=== PATIENT | male | born 1965 | race Caucasian/White ===

== ENCOUNTER 2019-04-19 11:53 | Emergency (ER) | payer OTHER ==
[~2019-04-19] VITALS: Ht 177.8 cm; Wt 101.8 kg
[2019-04-19] MEDS ORDERED: AMLO2.5T4 (12:14)
[2019-04-19] MEDS ORDERED: ceFAZolin INJECTION 2,000 MG ONE (12:23)
[2019-04-19] MEDS ORDERED: WATER (STERILE) FOR INJECTION 20 ML ONE (12:24)
[2019-04-19] MEDS ORDERED: TETANUS,DIPTH,PERTUSS P/F (BOOSTRIX) 0.5 ML VIAL IM ONE (12:30)
[2019-04-19] MEDS ORDERED: ceFAZolin 2 GM IV Premixed 50 ML IV ONE (12:30)
[2019-04-19] MEDS ORDERED: LIDOCAINE 1% INJ 20 ML 20 ML VIAL INJ ONE (12:30)
--- NOTE | 2019-04-19 12:31 | ED Upper Extremity ---
General Chief Complaint: Laceration Stated Complaint: WC RT THUMB LAC Source: patient Exam Limitations: no limitations History of Present Illness Date Seen by Provider: Apr 19, 2019 Time Seen by Provider: 12:00 Initial Comments The patient is a very pleasant 54-year-old male presents for evaluation of a significant right thumb injury. He states that he was at work and was removing a wire from a fence posts when it caught his thumb. The thumb nail and distal tip of the finger are completely hanging off the thumb with only a small piece of skin holding the tip on. He denies any other injuries. He is unsure of his tetanus this will be updated today. Explained to the patient that he may need to be transferred to a higher level facility for surgical care. Upon arrival the thumb tip does not appear to have good vascular supply. I did explain to the patient that regardless of whether the thumb is for. Here or elsewhere there is a high degree of likelihood that the tip will not survive. Onset: just prior to arrival Pain/Injury Location: right thumb Method of Injury: direct blow Allergies and Home Medications Allergies Coded Allergies: No Known Drug Allergies (Unverified , 04/19/19) Patient Home Medication List Home Medication List Reviewed: Yes Review of Systems Constitutional: no symptoms reported EENTM: no symptoms reported Respiratory: no symptoms reported Cardiovascular: no symptoms reported Gastrointestinal: no symptoms reported Genitourinary: no symptoms reported Musculoskeletal: other (right thumb laceration/injury) Skin: no symptoms reported Psychiatric/Neurological: No Symptoms Reported All Other Systems Reviewed Negative Unless Noted: Yes Past Wtpxnll-Fsowro-Ahogjk Hx Past Med/Social Hx: Reviewed Nursing Past Med/Soc Hx Patient Social History Alcohol Use: Denies Use Recreational Drug Use: No Smoking Status: Never a Smoker Type Used: Smokeless Tobacco 2nd Hand Smoke Exposure: No Recent Foreign Travel: No Recent Hopitalizations: No Physical Abuse: No Sexual Abuse: No Mistreated: No Fear: No Immunizations Up To Date Tetanus Booster (TDap): Unknown Seasonal Allergies Seasonal Allergies: No Past Medical History Surgeries: Yes (ORIF WITH REPAIRS FOR CIRCULATION TO R ANKLE, DISKECTOMY BACK, KNEE SCOPES) Orthopedic Respiratory: No Cardiac: Yes Hypertension Neurological: No Genitourinary: No Gastrointestinal: No Musculoskeletal: No Endocrine: No HEENT: No Cancer: No Psychosocial: No Integumentary: No Blood Disorders: No Physical Exam Vital Signs Vital Signs - First Documented 04/19/19 11:58 Temp 36.7 Pulse 83 Resp 16 B/P (MAP) 165/97 (119) Pulse Ox 96 O2 Delivery Room Air Capillary Refill : Less Than 3 Seconds Height, Weight, BMI Height: '" Weight: lbs. oz. kg; BMI Method: General Appearance: WD/WN, no apparent distress HEENT: PERRL/EOMI, TMs normal, pharynx normal Neck: non-tender, full range of motion, supple Cardiovascular: regular rate, rhythm, no edema, no JVD Respiratory: chest non-tender, normal breath sounds, no accessory muscle use Gastrointestinal: normal bowel sounds, non tender, soft Back: normal inspection, no CVA tenderness, no vertebral tenderness Shoulder: normal inspection, non-tender, no evidence of injury, normal ROM Elbow/Forearm: normal inspection, non-tender, no evidence of injury, normal ROM Wrist: Yes normal inspection, Yes non-tender, Yes no evidence of injury, Yes normal ROM Hand: Right (thumb with degloving style injury involving the entire thumbnail, the tip of the finger is attached to a small piece of skin to the rest of the thumb and there is poor distal blood flow him a sensation is severely decreased) Neurologic/Psychiatric: review scheduling coordinator II-XII nml as tested, alert, normal mood/affect, oriented x 3 Skin: normal color, warm/dry Progress/Results/Core Measures Results/Orders My Orders Orders - CHELLE OLIVARES DO Finger(S) (04/19/19 12:09) Dipht,Pertuss(Acell),Tet Adult (Boostrix (04/19/19 12:30) Ed Iv/Invasive Line Start (04/19/19 12:16) Cefazolin 2 Gm Iv Premixed (Ancef 2 Gm P (04/19/19 12:30) Lidocaine 1% Inj 20 Ml (Xylocaine 1% Inj (04/19/19 12:30) Cefazolin Injection (Ancef Injection) (04/19/19 12:23) Water (Sterile) For Injection (Sterile W (04/19/19 12:24) Morphine Injection (Morphine Injection (04/19/19 14:21) Medications Given in ED Current Medications Medications Dose Ordered Sig/Vasu Route Start Time Stop Time Status Last Admin Dose Admin Cefazolin Sodium/ Dextrose 50 ml @ 100 mls/hr ONCE ONCE IV 04/19/19 12:30 04/19/19 12:59 DC 04/19/19 12:44 100 MLS/HR Diphtheria/ Tetanus/Acell Pertussis 0.5 ml ONCE ONCE IM 04/19/19 12:30 04/19/19 12:31 DC 04/19/19 12:44 0.5 ML Lidocaine HCl 20 ml ONCE ONCE INJ 04/19/19 12:30 04/19/19 12:31 DC 04/19/19 12:46 20 ML Vital Signs/I&O 04/19/19 04/19/19 11:58 14:27 Temp 36.7 36.7 Pulse 83 Resp 16 B/P (MAP) 165/97 (119) Pulse Ox 96 O2 Delivery Room Air Progress Progress Note : Progress Note @1302 - Offered to repair finger here but pt declines and would like to be transferred to a higher level of care for hand specialist repair. Possible tuft fracture seen, Ancef given. Nail was completely out of place anatomically and has been placed back in it's normal anatomic position. Pt prefers [facility] for transfer for hand specialist. I was told by the transfer team that the on- call orthopedic surgeon who would take care of this case is currently scrubbed in and they expect a call me back in 30 minutes or so. @1345 - ankit Atkinson at [facility] states he does not do hand. @ 1355 - [facility] does not have a hand surgeon available. @ !400 - Case d/w [facility], they will call back with a hand specialist. @1418 - Case d/w Dr. Warren at [facility]. He stated he wanted to see photos of the injury. Pt gives consent, photos of injury and xray sent to Dr. Warren. Awaiting call back. @1445 - Dr. Warren accepts the transfer to the ER. Pt prefers to go by private vehicle. Diagnostic Imaging Comments [facility]. POS [place], [place] POS NAME: CARONCHELLE Marshall MED REC#: [id number] PT STATUS: REG ER : 1965 PHYSICIAN: CHELLE OLIVARES DO ADMIT DATE: 04/19/19/ER FS Draft POSDate of Exam:04/19/19 FINGER(S) INDICATION: Injury to the right thumb. TIME OF EXAM: 11:52 a.m. TECHNIQUE: Multiple views of the right thumb are obtained. FINDINGS: There is soft tissue injury involving the distal aspect of the thumb where there is near-complete soft tissue amputation of the distal aspect of the thumb. This appears to involve a very thin portion of the terminal tuft of the thumb which is displaced volar and distally. No other fractures are seen. Proximal phalanx and first metacarpal are intact. 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 No other abnormality is seen. Dictated on workstation # [id number] Dict: 04/19/19 1232 Trans: 04/19/19 1235 [id number] Interpreted by: JENNA JONES MD Electronically signed by: Departure Impression Primary Impression: Laceration of thumb, left Additional Impression: Closed fracture of tuft of distal phalanx of finger Disposition: 02 XFER SHT-TRM HOSP Condition: Stable Transfer Transfer Reason: Exceeds level of care Time Spoke to Accepting Phy: 14:[address] Warren (hand specialist) at [facility] accepts the transfer to the ER. Transfer Time: 14:58 Transfer Facility: [facility] Method of Transfer: Private Vehicle Departure-Patient Inst. Referrals: CHARLOTTE BEYER MD (PCP/Family) Primary Care Physician CHELLE OLIVARES DO Apr 19, 2019 12:31 POS
--- NOTE | 2019-04-19 12:36 | Diagnostic Imaging Report ---
INDICATION: Injury to the right thumb. TIME OF EXAM: 11:52 a.m. TECHNIQUE: Multiple views of the right thumb are obtained. FINDINGS: There is soft tissue injury involving the distal aspect of the thumb where there is near-complete soft tissue amputation of the distal aspect of the thumb. This appears to involve a very thin portion of the terminal tuft of the thumb which is displaced volar and distally. No other fractures are seen. Proximal phalanx and first metacarpal are intact. 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 No other abnormality is seen. Dictated by: Dictated on workstation # [id number]
[2019-04-19] MEDS ORDERED: morphine INJ 10 MG/ML 1ML (SYR OR VIAL) IVP STA (14:21)
[2019-04-19 15:28] VITALS: BP 169/93
--- NOTE | 2019-04-19 15:28 | NUR ---
Patient departing ER with wet to dry Sterile NS soaked dressings after thumb has been irrigated with NS and Betasept. Pt has had Boostrix and Ancef 2 GM. Initially patient had a Lidocaine block performed then pt has a dose of Morphine later for pain. Since arrived during the first hour there has been frequency of nurse questions as she is talking via phone to patient's mother a nurse. Numerous times nurse is told time being wasted while awaiting transfer. Dr Monreal had been placing calls to find accepting hand specialist and tried in the [place] area but was awaiting a surgeon to get out of surgery to call us back with a short [address] Monreal then asked patient for any preference to another location to speed this process up. A call placed to hand specialist at [facility]. Upon attempting RN to ER report as Dr Warren accepted, Dr Monreal then had to speak to ER physisican for acceptance. Continued delays. The finger after xray was cleansed with the sterile NS and Betasept and irrigated. The finger tissure was aligned as close to proper approximation to keep from any severe weight/distress on vessels. Bleeding appears controlled. Finger is wrapped in sterile wrap wet to dry to keep area moist. Skin appears pink with varied blanching of pink color all within 2-4 sec. Pt declined EMS transfer, refusal od EMS service was signed. Review of risks and benefits had been made with and RN. Explained appropriate to be NPO though had bought pt soft drink and was made NPO in this ER. Both verbalize importance of prompt arrival to ER of [facility] in [place] and carrying our transfer packet. No written work comp forms used in this ER by this Dr as patient was referred to priscilla level of care. VSS.
--- NOTE | 2019-04-19 15:30 | NUR ---
Called again to [facility] and report to Stephanie CONN continued. Pt in route POV, SL is wrapped in [place]. Reviewed meds given. Xray on disk in package.
== END 2019-04-19 15:28 | disposition short-term general hospital (02) ==
LOC: ER FS 11:55
DX: S62.521A Displaced fracture of distal phalanx of right thumb, initial encounter for closed fracture (principal); S61.111A Laceration without foreign body of right thumb with damage to nail, initial encounter; I10 Essential (primary) hypertension; Z23 Encounter for immunization; W23.1XXA Caught, crushed, jammed, or pinched between stationary objects, initial encounter; Y92.59 Other trade areas as the place of occurrence of the external cause
CPT/HCPCS: 73140; 90471; 90715; 96365; 96375

== ENCOUNTER 2020-12-19 18:58 | Emergency (ER) | payer OTHER ==
[~2020-12-19] VITALS: Ht 177.8 cm; Wt 95.0 kg
[~2020-12-19 18:58] MED LIST: AMLO2.5T4
[2020-12-19] MEDS ORDERED: ONDANSETRON 4 MG/2 ML (SDV) Z0FRAN IVP STA (19:13)
[2020-12-19] MEDS ORDERED: ASPIRIN 81 MG CHEW (CHILDREN'S ASA) PO STA (19:13)
[2020-12-19] MEDS ORDERED: morphine INJ 10 MG/ML 1ML (SYR OR VIAL) IVP STA ×2 (19:13→20:26)
--- NOTE | 2020-12-19 19:16 | ED Chest Pain ---
General Chief Complaint: Chest Pain Stated Complaint: CHEST PAIN,LEFT SHOULDER PAIN Source: patient, spouse History of Present Illness Date Seen by Provider: Dec 19, 2020 Time Seen by Provider: 19:00 Initial Comments 55-year-old male presenting with chest pain going into his left shoulder. He states that this started Tuesday night for him but he has not seen them. He had severe pain all night till about noon on . At that point it finally subsided. Then when he woke up this morning he was having pain and symptoms again that lasted throughout the day. This evening he had more severe pain develop some he came with his to the emergency department. Initially they had plan to follow-up with her primary care provider on Tuesday. He has a history of high blood pressure and takes amlodipine 10 mg for that. He denies other medical problems. He denies any known cardiac disease for himself or family members. Timing/Duration: 2-3 days Severity/Quality: severe, pressure, sharp Location: substernal, shoulder, back Radiation: shoulders, back Activities at Onset: none Prior CP/Workup: no prior chest pain, no prior cardiac workup ASA po COTTON CANDY MAKER: No NTG SL COTTON CANDY MAKER: No Associated Symptoms: No abdominal pain, No diaphoresis, No dizziness, No edema, No fatigue, No fever/chills, No headache, No heartburn, No nausea/vomiting, No rash, No shortness of breath, No swelling/lump in chest, No syncope, No weakness Allergies and Home Medications Allergies Coded Allergies: No Known Drug Allergies (Unverified , 04/19/19) Patient Home Medication List Home Medication List Reviewed: Yes Review of Systems Review of Systems Constitutional: No chills, No fever EENTM: No Symptoms Reported Respiratory: No Symptoms Reported Cardiovascular: See HPI Gastrointestinal: No Symptoms Reported Genitourinary: No Symptoms Reported Musculoskeletal: no symptoms reported Skin: no symptoms reported Psychiatric/Neurological: No Symptoms Reported Endocrine: No Symptoms Reported Hematologic/Lymphatic: No Symptoms Reported Past Mtjqeaj-Txpvcg-Cdhgwu Hx Patient Social History Tobacco Use?: No Substance use?: No Alcohol Use?: No Pt feels they are or have been: No Immunizations Up To Date Tetanus Booster (TDap): Unknown Seasonal Allergies Seasonal Allergies: No Past Medical History Surgeries: Yes (ORIF WITH REPAIRS FOR CIRCULATION TO R ANKLE, DISKECTOMY BACK, KNEE SCOPES) Orthopedic Respiratory: No Cardiac: Yes Hypertension Neurological: No Genitourinary: No Gastrointestinal: No Musculoskeletal: No Endocrine: No HEENT: No Cancer: No Psychosocial: No Integumentary: No Blood Disorders: No Physical Exam Vital Signs Vital Signs - First Documented Capillary Refill : Height, Weight, BMI Height: '" Weight: lbs. oz. kg; 32.00 BMI Method: General Appearance: No Apparent Distress, WD/WN HEENT: PERRL/EOMI Neck: Full Range of Motion, Normal Inspection, Non Tender, Supple Respiratory: Chest Non Tender, No Accessory Muscle Use, No Respiratory Distress, Decreased Breath Sounds, Other (pain with deep breaths) Cardiovascular: Regular Rate, Rhythm, Normal Peripheral Pulses Gastrointestinal: Normal Bowel Sounds, No Pulsatile Mass, Non Tender, Soft Rectal: Deferred Extremity: Normal Capillary Refill, Normal Inspection, No Calf Tenderness, No Pedal Edema Neurologic/Psychiatric: Alert, Oriented x3, unit operator II-XII Norm as Tested Skin: Normal Color, Warm/Dry Critical Care Note Critical Care Total Time (minutes) 60 minutes Progress 60 minutes of critical care time was spent in direct care of the patient. This time excludes separately billable procedures. Time was spent in obtaining history from patient and family, ordering tests and reviewing results, ordering interventions and reviewing response, discussion with consultants, discussion with family, documentation in the chart. Patient was at risk of cardiovascular c ompromise due to heart attack and required direct care, monitoring and intervention from nd for this. Progress/Results/Core Measures Results/Orders Lab Results Laboratory Tests Test 12/19/20 17:36 12/19/20 19:13 Range/Units Prothrombin Time 13.2 12.2-14.7 SEC INR Comment 1.0 0.8-1.4 Activated Partial Thromboplast Time 28 24-35 SEC Sodium Level 134 L 135-145 MMOL/L Potassium Level 4.2 3.6-5.0 MMOL/L Chloride Level 98 98-107 MMOL/L Carbon Dioxide Level 25 21-32 MMOL/L Anion Gap 11 5-14 MMOL/L Blood Urea Nitrogen 12 7-18 MG/DL Creatinine 1.13 0.60-1.30 MG/DL Estimat Glomerular Filtration Rate > 60 BUN/Creatinine Ratio 11 Glucose Level 114 H 70-105 MG/DL Calcium Level 9.0 8.5-10.1 MG/DL Corrected Calcium 8.8 8.5-10.1 MG/DL Magnesium Level 2.2 1.6-2.4 MG/DL Total Bilirubin 0.6 0.1-1.0 MG/DL Aspartate Amino Transf (AST/SGOT) 128 H 5-34 U/L Alanine Aminotransferase (ALT/SGPT) 45 0-55 U/L Alkaline Phosphatase 73 40-136 U/L Total Protein 6.8 6.4-8.2 GM/DL Albumin 4.2 3.2-4.5 GM/DL Lipase 15 8-78 U/L White Blood Count 13.4 H 4.3-11.0 10^3/uL Red Blood Count 4.79 4.35-5.85 10^6/uL Hemoglobin 15.1 13.3-17.7 G/DL Hematocrit 45 40-54 % Mean Corpuscular Volume 93 80-99 FL Mean Corpuscular Hemoglobin 32 25-34 PG Mean Corpuscular Hemoglobin Concent 34 32-36 G/DL Red Cell Distribution Width 12.8 10.0-14.5 % Platelet Count 231 130-400 10^3/uL Mean Platelet Volume 9.9 7.4-10.4 FL Immature Granulocyte % (Auto) 0 % Neutrophils (%) (Auto) 74 42-75 % Lymphocytes (%) (Auto) 13 12-44 % Monocytes (%) (Auto) 12 0-12 % Eosinophils (%) (Auto) 1 0-10 % Basophils (%) (Auto) 0 0-10 % Neutrophils # (Auto) 9.8 H 1.8-7.8 X 10^3 Lymphocytes # (Auto) 1.8 1.0-4.0 X 10^3 Monocytes # (Auto) 1.6 H 0.0-1.0 X 10^3 Eosinophils # (Auto) 0.1 0.0-0.3 10^3/uL Basophils # (Auto) 0.0 0.0-0.1 10^3/uL Immature Granulocyte # (Auto) 0.1 0.0-0.1 10^3/uL Troponin I 8.99 *H <0.30 NG/ML Pro-B-Type Natriuretic Peptide 812.3 H <75.0 PG/ML My Orders Orders - ISRA MOORE MD Cbc With Automated Diff (12/19/20 19:05) Magnesium (12/19/20 19:05) Chest 1 View Ap/Pa Only (12/19/20 19:05) Ekg Tracing (12/19/20 19:05) Comprehensive Metabolic Panel (12/19/20 19:05) Protime With Inr (12/19/20 19:05) Partial Thromboplastin Time (12/19/20 19:05) O2 (12/19/20 19:05) Monitor-Rhythm Ecg Trace Only (12/19/20 19:05) Ed Iv/Invasive Line Start (12/19/20 19:05) Lipase (12/19/20 19:05) Troponin I Fs (12/19/20 19:05) Probnp Fs (12/19/20 19:05) Aspirin Chewable Tablet (Baby Aspirin Ch (12/19/20 19:13) Morphine Injection (Morphine Injection (12/19/20 19:13) Ondansetron Injection (Zofran Injectio (12/19/20 19:13) Morphine Injection (Morphine Injection (12/19/20 19:53) Heparin Drip 46514 Unit/500ml (Heparin (12/19/20 20:00) Heparin (Bolus Per Protocol) (Heparin (B (12/19/20 19:53) Morphine Injection (Morphine Injection (12/19/20 20:26) Nitroglycerin Ointment (Nitrobid Ointme (12/19/20 20:26) Nitro Drip 11850 Mcg/D5w (Nitroglycerin (12/19/20 21:15) Medications Given in ED Current Medications Medications Dose Ordered Sig/Vasu Route Start Time Stop Time Status Last Admin Dose Admin Heparin Sodium (Porcine) HEPARIN BOLUS ACS PROTOC... 1953 ONCE IV 12/19/20 19:53 12/19/20 19:56 DC 12/19/20 20:05 5,000 UNIT Heparin Sodium/ Dextrose 500 ml @ 0 mls/hr Q0M ONCE IV 12/19/20 20:00 12/19/20 20:01 DC 12/19/20 20:07 20 MLS/HR Vital Signs/I&O 12/19/20 12/19/20 12/19/20 19:00 19:00 21:17 Temp 37.0 Pulse 89 87 Resp 16 B/P (MAP) 138/66 (90) 138/85 Pulse Ox 96 O2 Delivery Room Air Room Air Progress Progress Note #1: Progress Note Initial electrocardiogram showed less than [address] elevation in leads II, III and aVF. He had pain that has been present since Tuesday. He will be given 324 mg of aspirin. Check labs and x-ray. Try morphine for his pain. Give a dose of Zofran to help try and prevent nausea and vomiting from the morphine. Progress Note #2: Progress Note On recheck of the patient he states he had mild improvement in his symptoms with treatment. He had no acute process on chest x-ray. His white blood cell count was slightly elevated at 13.4 with a normal differential. He had troponin that came back 8.99. His other electrolytes did not show acute significant abnormality. With him continue to have pain will start heparin as well as give additional morphine to help with his pain. As far as admission patient requested to go to [facility] in [place] Progress Note #3: Progress Note Patient was still having some pain so additional pain medicine ordered. [facility] was contacted and they advised that they were currently at capacity except trauma and STEMI's. Since he did not have elevation over 1 mm this is not an STEMI. [facility] contacted and they were at capacity for ICU and critical care beds. When asked where to call next they requested [facility]. 2017 I spoke with FABIEN Rogers, at [facility] and advised him of the patient. After he took the info on the patient he stated they were taking patient's on a case by case basis so he would review it with the physician and call me back. 2055 Patient was given additional Morphine and 1/2 in NTG paste for continued pain. FABIEN Rogers, called back and Dr. Joyce is accepting provider. They did request Ntg drip for pain control and will call back with bed assignment. Initial ECG Impression Date: Dec 19, 2020 Initial ECG Impression Time: 19:04 Initial ECG Rate: 87 Initial ECG Rhythm: Normal Sinus Initial ECG Comparisson: No Previous ECG Available Comment Normal sinus rhythm with a heart rate of 87 bpm. Less than [address] elevation in leads II, III and aVF. TX interval 149 ms. QT interval 348 ms with a QTc interval 419 ms. No prior tracing available for comparison. Diagnostic Imaging Diagonstic Imaging: Xray Plain Films/CT/US/NM/MRI: chest Comments [facility]. [place], [place] NAME: CHELLE REARDON [facility] REC#: [id number] PT STATUS: REG ER : 1965 PHYSICIAN: ISRA MOORE MD ADMIT DATE: 12/19/20/ER FS Draft Date of Exam:12/19/20 CHEST 1 VIEW AP/PA ONLY INDICATION: Chest pain. COMPARISON: None. EXAMINATION: Single view of the chest was obtained. FINDINGS: Clear lungs, bilaterally. The heart is normal. There is no pneumothorax. Osseous structures are normal. IMPRESSION: Negative chest. Dictated on workstation # [id number] Dict: 12/19/201917 Trans: 12/19/201918 [facility] [id number] Interpreted by: MADAN RODRÍGUEZ Electronically signed by: Departure Impression Primary Impression: Non-ST elevated myocardial infarction (non-STEMI) Disposition: XF SHT-TRM HOSP Condition: Critical Transfer Transfer Reason: Patient preference Time Spoke to Accepting Phy: 20:56 Transfer Progress Notes 2017 call to Transfer Center and spoke with FABIEN Rogers. Given information and he stated they are going on a case by case basis and he will check with the physicians and call me back. 2055 FABIEN Rogers, with Transfer center called back and Dr. Joyce accepted the patient. He did request that if the patient was not pain free to start a nitroglycerin drip and titrate to pain control. 2136 Call back to FABIEN Rogers, at [facility] to update him about Ntg drip at 10 mcg/min and he reported the patient was going to a floor in [facility] [place] where they just had a code so waiting on charge nurse to be available to assign him a bed. As I was speaking to him a bed assignment did show up in the computer system for pt to go to 915. Will have EMS on the way to transport pt and head to while calling report. 2199 EMS here to transport pt. He did report some pain starting to come back so an additional bump in Ntg drip to 20 mcg/min was made. Advised EMS they could go to 50 mcg/min and could use Morphine if needed for pain control. Transfer Facility: [facility] Method of Transfer: EMS Departure-Patient Inst. Referrals: CHARLOTTE BEYER MD (PCP/Family) Primary Care Physician ISRA MOORE MD Dec 19, 2020 19:16
[2020-12-19 19:18] LABS: BASOPHILS % (AUTO) 0 % (0-10); EOSINOPHILS % (AUTO) 1 % (0-10); HEMATOCRIT 45 % (40-54); HEMOGLOBIN 15.1 G/DL (13.3-17.7); LYMPHOCYTES % (AUTO) 13 % (12-44); MEAN CORPUSCULAR HEMOGLOBIN 32 PG (25-34); MEAN CORPUSCULAR HGB CONC 34 G/DL (32-36); MEAN CORPUSCULAR VOLUME 93 FL (80-99); MEAN PLATELET VOLUME 9.9 FL (7.4-10.4); MONOCYTES % (AUTO) 12 % (0-12); NEUTROPHILS % (AUTO) 74 % (42-75); PLATELET COUNT 231 10^3/uL (130-400); WHITE BLOOD COUNT 13.4 10^3/uL (4.3-11.0)
[2020-12-19 19:19] LABS: EOSINOPHILS # (AUTO) 0.1 10^3/uL (0.0-0.3); LYMPHOCYTES # (AUTO) 1.8 X 10^3 (1.0-4.0); MONOCYTES # (AUTO) 1.6 X 10^3 (0.0-1.0); NEUTROPHILS # (AUTO) 9.8 X 10^3 (1.8-7.8)
--- NOTE | 2020-12-19 19:20 | Diagnostic Imaging Report ---
INDICATION: Chest pain. COMPARISON: None. EXAMINATION: Single view of the chest was obtained. FINDINGS: Clear lungs, bilaterally. The heart is normal. There is no pneumothorax. Osseous structures are normal. IMPRESSION: Negative chest. Dictated by: Dictated on workstation # [id number]
[2020-12-19 19:31] LABS: PROTHROMBIN TIME PATIENT 13.2 SEC (12.2-14.7)
[2020-12-19 19:44] LABS: CHLORIDE 98 MMOL/L (98-107); POTASSIUM 4.2 MMOL/L (3.6-5.0); SODIUM 134 MMOL/L (135-145)
[2020-12-19 19:45] LABS: ALANINE AMINOTRANSFERASE 45 U/L (0-55); ALBUMIN 4.2 GM/DL (3.2-4.5); ALKALINE PHOSPHATASE 73 U/L (40-136); BILIRUBIN,TOTAL 0.6 MG/DL (0.1-1.0); BUN/CREATININE RATIO 11; CARBON DIOXIDE 25 MMOL/L (21-32); CREATININE SERUM 1.13 MG/DL (0.60-1.30); GFR ESTIMATED > 60; GLUCOSE 114 MG/DL (70-105); LIPASE 15 U/L (8-78); MAGNESIUM 2.2 MG/DL (1.6-2.4); TOTAL PROTEIN 6.8 GM/DL (6.4-8.2)
[2020-12-19] MEDS ORDERED: HEParin 1000 UNIT/ML (10ML VIAL) FOR BOLUS IV ONE (19:53)
[2020-12-19] MEDS ORDERED: morphine INJ 10 MG/ML 1ML (SYR OR VIAL) IV STA (19:53)
[2020-12-19] MEDS ORDERED: HEParin DRIP 25000 UNIT/500ML 500 ML IV ONE (20:00)
[2020-12-19] MEDS ORDERED: NITROGLYCERIN 2% OINT 1 GM UNIT DOSE PACKET TOP STA (20:26)
[2020-12-19] MEDS ORDERED: NITRO DRIP 25000 MCG/D5W 250 ML IV SCH (21:15)
[2020-12-19 22:02] VITALS: BP 121/76
== END 2020-12-19 22:02 | disposition short-term general hospital (02) ==
LOC: EDUNIT# 18:58 → ER FS 18:59
DX: I21.4 Non-ST elevation (NSTEMI) myocardial infarction (principal); I10 Essential (primary) hypertension
CPT/HCPCS: 36415; 71045; 80053; 83690; 83735; 83880; 84484; 85025; 85610; 85730; 93005; 93041